=== PATIENT | female | born 1970 | race Caucasian/White ===

== ENCOUNTER 2023-12-14 09:28 | Outpatient (CLI) | payer OTHER | END 2023-12-14 09:37 | disposition home or self-care (01) | LOC: MAMO-SONO 09:28 | PROVIDERS: ATTEND Obstetrics & Gynecology Maternal & Fetal Medicine | DX: N63 Unspecified lump in breast (principal); Z12.31 Encounter for screening mammogram for malignant neoplasm of breast; N64.4 Mastodynia; N60.11 Diffuse cystic mastopathy of right breast ==

== ENCOUNTER 2024-06-02 11:40 | Outpatient (CLI) | payer OTHER | END 2024-06-02 11:52 | disposition home or self-care (01) | LOC: SONOGRAMA 11:40 | PROVIDERS: ATTEND Obstetrics & Gynecology Maternal & Fetal Medicine | DX: N60.19 Diffuse cystic mastopathy of unspecified breast (principal); N63.0 Unspecified lump in unspecified breast; N60.11 Diffuse cystic mastopathy of right breast ==